=== PATIENT | female | born 1970 | race Caucasian/White ===

== ENCOUNTER 2024-04-13 07:13 | Emergency (ER) | payer MEDICAID, SELFPAY ==
[2024-04-13 07:39] VITALS: BP 137/71; PULSE 77; RESP 16; TEMP 35.2; O2SAT 98; BMI 24.8
[2024-04-13 08:33] LABS: Influenza A PCR NEGATIVE (Negative); Influenza B PCR NEGATIVE (Negative); Resp Syncy Virus RNA Qual PCR NEGATIVE (Negative); SARS COV2 PCR INHOUSE NEGATIVE (Negative)
[2024-04-13 12:18] VITALS: BP 156/78; PULSE 78; RESP 18; TEMP 36.9; O2SAT 95
--- NOTE | 2024-04-13 13:22 | ED.GENADULT ---
HPI - General Adult General Chief complaint: General Medical Stated complaint: nasal issue ear pain bloody nose Time Seen by Provider: 04/13/24 13:19 Source: patient and RN notes reviewed Mode of arrival: ambulatory Limitations: no limitations History of Present Illness ED Provider: Ayla Devries PA-C [facility] narrative: This is a 54-year-old female who presents emergency department for evaluation of sinus congestion, facial pain x1 week. Patient states that she has ongoing chronic sinusitis, and typically knows when she needs antibiotics. She states that she has been using xnyd-oxf-[id number] medications for her symptoms which has provided her without any relief. She denies any fevers or chills. She has a history of hypertension. She reports that she has had multiple episodes of epistaxis which occur after blowing her nose, she is not on anticoagulation. She states that these episodes are not prolonged. Denies any dizziness, lightheadedness, chest pain, shortness of breath, abdominal pain, nausea, vomiting or diarrhea. No other complaints or concerns at this time. MD complaint: Sinus pain Location: face Quality: aching Pain Consistency: constant Relieving factors: none Exacerbating factors: none Associated symptoms: denies other symptoms Treatments prior to arrival: none Related Data Previous Rx's ?Medication ?Instructions ?Recorded clindamycin HCl 300 mg capsule 300 mg PO TID 7 days #21 caps 04/13/24 Allergies Allergy/AdvReac Type Severity Reaction Status Date / Time SEASONAL ALLERGIES Allergy Unknown UNKNOWN Uncoded 04/13/24 07:40 Review of Systems Review of Systems: Yes all other systems are reviewed and are negative Constitutional: Constitutional: Reports as per [facility] Social History Social History Do you have a plan to hurt others: No Plan Physical Exam ED Vital Signs: Vital Signs - 24 hr 04/13/24 07:39 04/13/24 12:18 Temperature 95.4 F L 98.5 F Pulse Rate 77 78 Respiratory Rate 16 18 Blood Pressure 137/71 156/78 H Pulse Oximetry 98 95 Oxygen Delivery Method Room Air Room Air BMI result Body Mass Index 24.8 Const General: cooperative, comfortable and no acute distress Orientation/consciousness: patient oriented x3 Limitations: no limitations HENMT Other: Right nasal turbinate is mildly edematous and erythematous, no active epistaxis noted. No evidence of bleeding. Tenderness palpation along the maxillary and ethmoid as well as frontal sinuses. Head: Yes normal to inspection, Yes normocephalic and Yes atraumatic Ears: hearing grossly normal bilaterally and TM's normal bilaterally General nose exam: Normal external nose present Face and sinus: Yes normal facial exam Mouth: Normal oral and palatal mucosa present, oropharynx normal and moist mucous membranes Throat: Yes posterior oropharynx normal Eyes General: appearance normal, both eyes and all related structures Eyelids: Yes eyelids normal Conjunctivae: conjunctivae normal Sclerae: sclerae normal Pupils: Equal, round and reactive pupils present EOM: EOMs intact bilaterally Neck Neck: Yes normal visual inspection, Yes full ROM and Yes no lymphadenopathy Lymphatic: no lymphadenopathy noted Chest Chest palpation & inspection: normal inspection of the chest Resp Effort & Inspection: normal respiratory effort and able to speak in complete sentences Auscultation: clear to auscultation bilaterally, no crackles, no rales, no rhonchi and no wheezes Cardio Rate: regular rate Rhythm: regular rhythm Heart sounds: S1 normal heart sound present and S2 normal heart sound present GI Inspection: Yes normal to inspection Skin General skin exam: no rashes or lesions noted Trauma: no lacerations or abrasions Wounds: no wounds Neuro General: patient oriented x3 and moves all extremities Cranial nerves: Yes Equal, round and reactive pupils present Extrem General: Yes normal to inspection Right upper extremity: normal to inspection Left upper extremity: normal to inspection Right lower extremity: normal to inspection Left lower extremity: normal to inspection Medical Decision Making Medical Decision Making MDM Narrative: This is a 54-year-old female, with a history of chronic sinusitis, who presents emergency department with complaints of sinus pain, pressure for the last week. She denies any fevers or chills. She states that she has a history of chronic sinus infections, states that she takes dmah-ing-ecbxukc allergy medications however states that the over the counter medications are no longer working. She states that at times she was get prescribed antibiotics to alleviate her symptoms. She does report she has an allergy to penicillin. Given this allergy, we will treat with clindamycin. Given strict return precautions. Viral swabs were obtained, negative for COVID, flu, RSV. Patient understands and agrees with plan. She is overall well-appearing, answered all questions, patient stable for discharge. Differential Diagnosis Differential Diagnoses: The differential diagnosis associated with the presentation includes Sinusitis, COVID, flu, RSV, epistaxis Admission/Observation Consideration of admission/observation: Escalation of care including admission/observation considered Lab Data MDM Lab Attestation statement: I reviewed the patient's lab results. Labs: Lab Results 04/13/24 Range/Units 07:49 Influenza Type A (PCR) NEGATIVE (Negative) Influenza Type B (PCR) NEGATIVE (Negative) RSV RNA Qual (PCR) NEGATIVE (Negative) SARS-CoV-2 RNA (RT-PCR) NEGATIVE (Negative) Radiology Impression Discussion of test interpretation with radiology: I have reviewed the radiologist's reading. External Record Review External record reviewed: Inpatient record, Office record, Outpatient record, Prior outpatient labs, Prior outpatient radiology, Primary care record and Outside ED record Discharge Plan Discharge Clinical Impression: Sinusitis Patient Disposition: Home, Self-Care Instructions: Sinusitis (ED) Additional Instructions: You were seen in the emergency department with concerns for sinus congestion. You have evidence for ascites infection, please take prescribed antibiotic as directed, finish the entire course even if your symptoms improve. Drink plenty of fluids get plenty of rest. You tested negative for COVID, flu, and RSV. If any new or worsening symptoms occur including but not limited to high fevers, severe headache, dizziness, please seek emergent care. Prescriptions: New clindamycin HCl 300 mg capsule 300 mg PO TID 7 Days Qty: 21 0RF Stand Alone Forms: Work/School Release Print Language: Danish
[2024-04-13 13:41] VITALS: BP 156/78; PULSE 78; RESP 18; TEMP 36.9; O2SAT 95
--- OUTSIDE RECORDS SUMMARY | 2024-04-13 14:36 | XMS_ITS | Clinical Summary ---
Author Organization [address] Address [address] [place] [id number] Phone Care Team Providers Care Historical Archeologist Name Role Phone Ana Burkett MD Primary Care Provider [phone] Allergies Active Allergy Reactions Criticality Noted Date Comments Amoxicillin Hives High 12/08/2013 Doxycycline Nausea And Vomiting 05/31/2017 Other 07/02/2016 Seasonal Medications mometasone (Asmanex Twisthaler) 220 mcg/ actuation (120) aerosol powdr breath activated inhaler Inhale 1 Puff into the lungs 2 times daily. 08/13/2023 Active hydroCHLOROthia zide (HYDRODIURIL) 50 mg tablet Take 1 tablet (50 mg total) by mouth 1 (one) time each day. 08/13/2023 Active valsartan (DIOVAN) 40 mg tablet Take 1 tablet (40 mg total) by mouth 1 (one) time each day. 08/13/2023 Active atorvastatin (LIPITOR) 20 mg tablet Take 1 tablet (20 mg total) by mouth 1 (one) time each day. 08/13/2023 Active albuterol HFA (PROAIR HFA ; PROVENTIL HFA ; VENTOLIN HFA) 90 mcg/actuation inhaler Inhale 2 Puffs into the lungs every 4 hours as needed for Cough or Wheezing. 08/13/2023 Active azithromycin (ZITHROMAX) 250 mg tablet Take 2 tabs day 1, take 1 tab daily for 4 days 08/13/2023 Active azelastine (ASTELIN) 137 mcg (0.1 %) nasal spray 1 [place] by Each Nare route at bedtime. 03/24/2023 Active loratadine (CLARITIN) 10 mg tablet Take 1 tablet (10 mg total) by mouth 1 (one) time each day. 08/13/2023 Active oxyCODONE-aceta minophen (PERCOCET) 5-325 mg per tablet Take 1 Tablet by mouth every 6 hours as needed for Pain. Written to cover in Dr Finch's absence 12/10/2022 Active Active Problems Problem Noted Date Diagnosed Date Mixed hyperlipidemia 08/13/2023 Seasonal allergies 06/11/2021 Overview (12/21/2023): Last Assessment & Plan: Continue following in the allergy clinic. I advised her to start using Claritin but if it does not work she may need to get back to the allergy immunotherapy. Moderate persistent asthma 08/21/2019 Overview (12/21/2023): Last Assessment & Plan: Patient has been diagnosed previously with moderate asthma. She has been receiving monotherapy with high-dose inhaled steroid 220 mcg 1 puff twice a day of Flovent and feels her that her asthma is under control. She comes to establish care with us and I will prescribe the following: Pulmonary function testing her next appointment. Continue using current therapy with Flovent twice a day and albuterol as needed. Patient technique review. Patient knows how to use the inhaler Advised to try to avoid triggers like cold weather and dose Fibromyalgia 03/01/2017 Migraine 07/01/2016 Overview (12/21/2023): Negative noncontrast brain CT [facility] ER 06/30/16 Left sided sciatica 04/01/2015 Eczema 08/03/2014 Ovarian cyst 05/21/2014 Overview (12/21/2023): S/p partial hysterectomy - Dr. Cheng at [facility] Allergic rhinitis 01/05/2014 Overview (12/21/2023): Saw ENT 12/25/2013 - ENT exam unremarkable, sinus xrays nml - may need allergy evaluation Hypertension 12/08/2013 Joint pain 12/08/2013 PTSD (post-traumatic stress disorder) 12/08/2013 Overview (12/21/2023): Currently [facility] but transitioning to [facility] Encounters Date Type Department Care Team Description 01/28/2024 7:18 AM EST - 01/28/2024 8:39 AM EST Emergency [facility] Emergency [address] [place] [address] Viral syndrome (Primary Dx) Discharge Disposition: Home or Self Care from Last 3 Months Immunizations Name Administration Dates Next Due Hep B, Unspecified 08/31/2011 Hepatitis A Adult (Havrix; Vaqta) 19yo and older 06/24/2012 Hepatitis B (Fjokjqi-Q-Lcymt , Recombivax HB-Adult) 19yo and older 08/27/2001 Influenza Quadravalent, 0.5ml (Fluad) 65yo and o lder 12/01/2022 Influenza trivalent, 0.5mL, preservative free (Fluarix; FluLaval; Fluzone) ages 6mo and older (Afluria) 3 years and older 12/08/2013 PPD Test 11/11/2015,12/13/2013 [employer] SARS-CoV-2 COVID-19, mRNA, LNP-S, preservative free 06/17/2020 Pneumococcal polysaccharide 23 valent (Pneumovax 23) 2yo and older 05/21/2014 Tdap Tetanus diptheria acell ular pertussis (Boostrix; Adacel) 7yo and older 05/21/2014 Surgical History Surgery Date Site/Laterality Comments PARTIAL HYSTERECTOMY 1984 PROCEDURE: NE SUPRACERVICAL ABDL HYSTER W/WO RMVL TUBE OVARY; COMMENT: still has one ovary Medical History Medical History Date Comments Mild intermittent asthma 12/08/2013 DX:Mild intermittent asthma Hypertension 12/08/2013 DX:Hypertension Depression with anxiety 12/08/2013 DX:Depre ssion with anxiety; COMMENT: [facility] but then [facility] Joint pain 12/08/2013 DX:Joint pain History of bleeding ulcers age 19 DX:Dc story of bleeding ulcers; COMMENT: no location given History of pericarditis DX:Histo ry of pericarditis; COMMENT: 02/2012 - followed with cardiology Family history of colon cancer 06/17/2015 D X:Family history of colon cancer; COMMENT: 06/17/15 GI tried to book her screening colonoscopy: Pt. Refuses to schedule colonoscopy with us. She states that she has no way to watch the video or web link. I did inform her that she could come in and watch if here. She was very upset and stated she will be transferring out of [place]. Hyperlipidemia DX:Hyperlipidemi a Family History Medical History Relation Name Comments Colon cancer Father Blindness Neg Hx Glaucoma, macul ar degeneration, strabismus, breast cancer Relation Name Status Comments Daughter Alive born 1990 [place] , obese Father Alive had colon CA ag e 65 Mother Alive pt was 21 when mother of brain aneurysm Sister 1 Alive elder by 1 yr, Carmen in [place] Sister 2 Alive younger by 1 yr , Mary Grace, in Sister 3 Alive younger by 3-4 yrs, Radha, in [place] Son Alive born Matthew Social History Tobacco Use Types Packs/Day Years Used Date Smoking Tobacco: Former Cigarettes Q uit: 02/22/1998 Smokeless Tobacco: Never Alcohol Use Standard Drinks/Week Comments Yes 0 (1 standard drink = 0.6 oz pur e alcohol) Housing Instability Answer Date Recorde d Are you worried that in the next 2 months you may not have stable housing? No 01/05/2024 Food Access & Nutrition Answer Date Rec orded Do you have access to a vari ety of food including fruits and vegetables? No 01/05/2024 Access to Healthcare Answer Date Record ed Within the last 3 months, ho w many times did you visit the emergency department for your medical care? 0 01/05/2024 Health Literacy Answer Date Recorded How often do you need to hav e someone help you when you read instructions, pamphlets, or other written material from your doctor or pharmacy? Sometimes 01/05/2024 Caregiver: How often do you need to have someone help you when you read instructions, pamphlets, or other written material from your doctor or pharmacy? Not on file 01/05/2024 Financial Risk Answer Date Recorded How hard is it for you to pa y for the very basics like food, housing, medical care, and air conditioning / heating? Somewhat hard 01/05/2024 Transportation Answer Date Recorded Has the lack of transportati on kept you from meetings, work, or from getting things needed for daily living? Yes Has the lack of transportati on kept you from medical appointments or from getting medications? Yes 01/05/2024 Social Isolation Answer Date Recorded How often do you feel lonely or isolated from those around you? Sometimes 01/05/2024 Food Risk Answer Date Recorded Within the past 12 months we worried whether our food would run out before we got money to buy more. Sometimes true 024 Within the past 12 months th e food we bought just didn't last and we didn't have money to get more. Never true 01/05/2024 Dependent Care Answer Date Recorded Do you need help finding or paying for care for your loved ones. For example, director child or elderly care for an older adult? No 01/05/2024 Education Answer Date Recorded Do you think completing more education or training, like finishing a GED, going to college, or learning a trade, would be helpful for you? No 01/05/2024 Employment and Income Answer Date Recor ded During the last four weeks, have you been actively looking for work? No 01/05/2024 Living Situation Answer Date Recorded What is your living situation? 1 03/06/2023 Comments Unknown Sex and Gender Information Value Date Recorded Sex Assigned at Female 01/28/2024 7:43 AM EST Legal Sex Female 2:15 PM EST Gender Identity Female 01/28/2024 7:43 AM EST Sexual Orientation Straight 01/28/2024 7: 43 AM EST Obstetrics History Last Filed Vital Signs Vital Sign Reading Time Taken Comments Blood Pressure 125/84 01/28/2024 6:30 AM EST Pulse 72 01/28/2024 6:30 AM EST Temperature 36.5 ??C (97.7 ??F) 01/28/2024 6:30 AM ES T Respiratory Rate 18 01/28/2024 6:30 AM EST Oxygen Saturation 100% 01/28/2024 6:30 AM EST Inhaled Oxygen Concentration - - Weight 62.6 kg (138 lb) 01/28/2024 2:19 AM EST Height 160 cm (5' 3 ) 01/28/2024 2:19 AM EST Body Mass Index 24.45 01/28/2024 2:19 AM EST Plan of Treatment Health Maintenance Due Date Last Done Comments Cervical Cancer Screening: P ap Smear 1990 Hepatitis B Vaccines (3 of 3 - 19+ 3-dose series) 10/26/2011 08/31/2011, 08/27/2001 Pneumococcal Vaccine: 50+ Years (2 of 2 - PCV) 05/22/2015 05/21/2014 Pneumococcal Vaccine: Pediatrics (0 to 5 Years) and At-Risk Patients (6 to 64 Years) (2 of 2 - PCV) 05/22/2015 05/21/2014 Zoster Vaccines (1 of 2) 2019 HIV Screening 01/31/2022 Hepatitis C Screening 01/31/2022 COVID-19 Vaccine (4 - 2023-2 5 season) 2023 03/14/2022, 07/08/2020, 06/17/2020 Influenza Vaccine (#1) 2023 , 12/08/2013 Breast Cancer Screening 05/07/2024 05/07/2022 DTaP,Tdap,and Td Vaccines (2 - Td or Tdap) 05/21/2024 05/21/2014 Hypertension/CHF/CAD Annual BMP Blood Test 08/12/2024 08/13/2023, 08/13/2023, 11/08/2013 Depression Screening 01/04/2025 01/05/2024 Social Influencers of Health Screening 01/04/2025 01/05/2024 Colorectal Cancer Screening: Colonoscopy 06/13/2028 06/13/2018 Cholesterol Screening (Lipid Panel) 08/12/2028 08/13/2023, 08/13/2023, 11/08/2013 Hepatitis A Vaccines Aged Out 06/24/2012 No long er eligible based on patient's age to complete this topic HIB Vaccines Aged Out No longer eligi ble based on patient's age to complete this topic HPV Vaccines Aged Out No longer eligi ble based on patient's age to complete this topic IPV Vaccines Aged Out No longer eligi ble based on patient's age to complete this topic MMR Vaccines Aged Out No longer eligi ble based on patient's age to complete this topic Meningococcal ACWY Vaccine Aged Out N o longer eligible based on patient's age to complete this topic Meningococcal B Vacine Aged Out No lo nger eligible based on patient's age to complete this topic RSV Immunization Patients Under 20 months Aged Out No longer eligible b ased on patient's age to complete this topic Varicella Vaccines Aged Out No longer eligible based on patient's age to complete this topic Procedures Procedure Name Priority Date/Time Associated Diagnosis Comments ANNUAL BMP BLOOD TEST Routine 08/13/2023 LIPID PANEL Routine 08/13/2023 [facility] SCREENING DIGITAL Routine 05/07/2022 12:12 PM EDT Encounter for screening mammogram for malignant neoplasm of breast COLONOSCOPY Routine 06/13/2018 from Last 3 Months or Most Recently Relevant to Health Maintenance Results * Annual BMP Blood Test (08/13/2023) Annual BMP Blood Test Abstracted Historical Provider HEALTH MAINTENANCE Final Result * (ABNORMAL) Lipid panel (08/13/2023) LDL/HDL Ratio 5(A) 0 - 4 Triglycerides 356(A) 0 - 150 mg/dL Cholesterol 218(A) 0 - 200 mg/dL HDL 44 >=40 mg/dL LDL Cholesterol 103(A) 0 - 100 mg/dL Blood Venous blood specimen / Unknown Historical Provider LAB BLOOD ORDERABLES Taryn l Result * [facility] SCREENING DIGITAL (05/07/2022 12:12 PM EDT) Anatomical Region Laterality Modality Mammography 05/07/2022 8:42 AM EDT Narrative 05/07/2022 12:12 PM EDT [facility] Diagnostic Imaging Department [address] [place] [id number] Patient: ??JOSE ALBERTO,TENZIN ?/Age/Sex: 1970 - 52 - F Unit#: ??[id number] ? Location/Status: ??SPDIMAM/REG CLI ? Mnemonic/Ordering Site: ??DIGSC/SPMAM Ordering Physician: ??ANA BURKETT MD [facility] Screening Digital - 05/07/22 - 899 EXAM: [facility] Screening Digital EXAM DATE AND TIME: 05/07/2022 9:00 AM HISTORY: ??Screening. COMPARISON: ??07/06/16, 09/16/15, 09/07/14, 07/10/09 TECHNIQUE: CC and MLO views of both breasts were obtained using full field digital mammography. Bilateral digital breast tomosynthesis was performed in the MLO projection. Computer aided detection with [employer] 7.2-H and [employer] 3D 3.1 was employed. TISSUE DENSITY: c. The breasts are heterogeneously dense, which may obscure small masses. FINDINGS: A 6 mm round asymmetry is seen in the central left breast on the MLO views, best seen on the tomosynthesis views which shows the abnormalities to lie in the lateral breast. There is an equivocal corresponding asymmetry in the CC projection. MLO spot compression tomosynthesis views and full CC tomosynthesis views are recommended for further assessment. No grouped microcalcifications or areas of architectural distortion are seen. The skin and vascularity are unremarkable. IMPRESSION: 1. Left breast asymmetry, for which additional views are recommended. The patient will be called back. 2. Stable mammographic appearance of the right breast. No evidence of malignancy is seen. BI-RADS: ??Category 0: Incomplete - Need Additional Imaging Evaluation RECOMMENDATION(S): 1: Special mammographic view(s) needed LEFT [id number], [id number], [id number] Dictating Physician: ??CLAUDIA REAVES MD Electronically Signed by: ??CLAUDIA REAVES MD Dic Date/Time: ??05/07/22 1210 Sign date/Time: ??05/07/22 1212 Procedure Note Claudia Reaves MD - 03/26/2023 [facility] Diagnostic Imaging Department [address] [place] [id number] Patient: JOSE ALBERTOTENZIN./Age/Sex: 1970 - 52 - F Unit#: [id number] Location/Status: [facility] CLI Mnemonic/Ordering Site: [facility] Ordering Physician: ANA BURKETT MD [facility] Screening Digital - 05/07/22 - 0900 EXAM: [facility] Screening Digital EXAM DATE AND TIME: 05/07/2022 9:00 AM HISTORY: Screening. COMPARISON: 07/06/16, 09/16/15, 09/07/14, 07/10/09 TECHNIQUE: CC and MLO views of both breasts were obtained using fullfield digital mammography. Bilateral digital breast tomosynthesis was performedin the MLO projection. Computer aided detection with [employer] 7.2-H [employer] 3D 3.1 was employed. TISSUE DENSITY: c. The breasts are heterogeneously dense, which mayobscure small masses. FINDINGS: A 6 mm round asymmetry is seen in the central left breast on the MLOviews, best seen on the tomosynthesis views which shows the abnormalities to liein the lateral breast. There is an equivocal corresponding asymmetry in the CC projection. MLO spot compression tomosynthesis views and full CCtomosynthesis views are recommended for further assessment. No grouped microcalcifications or areas of architectural distortion areseen. The skin and vascularity are unremarkable. IMPRESSION: 1. Left breast asymmetry, for which additional views are recommended.The patient will be called back. 2. Stable mammographic appearance of the right breast. No evidence of malignancy is seen. BI-RADS: Category 0: Incomplete - Need Additional Imaging Evaluation RECOMMENDATION(S): 1: Special mammographic view(s) needed LEFT [id number], [id number], 7025F Dictating Physician: CLAUDIA REAVES MD Electronically Signed by: CLAUDIA REAVES MD Dic Date/Time: 05/07/22 1210 Sign date/Time: 05/07/22 1212 Ana Burkett MD IMG BI PROCEDURES Final Result * Colonoscopy (06/13/2018) Colonoscopy Normal, Abstracted Anatomical Region Laterality Modality Other Historical Provider HEALTH MAINTENANCE Final Result from Last 3 Months or Most Recently Relevant to Health Maintenance Insurance [place] Care Teams Historical Archeologist Relationship Specialty Start Date End Date Ana Burkett MD PCP - General Internal Medicine 01/14/24
--- OUTSIDE RECORDS SUMMARY | 2024-04-13 14:36 | XMS_ITS | Clinical Summary ---
Author Organization [employer] Address [address] [facility] 7[address] [place] [address] Care Team Providers Care Manufacturing Technology Professor Name Role Phone Unavailable Primary Care Provider Unavailabl e Encounters Date Type Department Care Team Description 04/06/2024 Telephone [facility] MEDICINE [address] [place] [address] Clint Quesada MD New patient appt. 03/20/2024 Patient Outreach [facility] CHC MED & PEDS [address] [place] [address] Dain Wright MD Pre-visit Planning (ILOH unable to reach [facility]) 02/04/2024 Telephone [facility] MEDICINE [address] [place] [address] Clint Quesada MD New patient appt. from Last 3 Months Social History Tobacco Use Types Packs/Day Years Used Date Smoking Tobacco: Never Assessed Comments Unknown Sex and Gender Information Value Date Recorded Sex Assigned at Female 03/23/2024 8:54 AM EST Legal Sex Female 3:37 PM EST Gender Identity Female 03/23/2024 8:54 AM EST Sexual Orientation Don't know 03/23/2024 8: 54 AM EST Plan of Treatment Health Maintenance Due Date Last Done Comments CT Colonography 1969 Colonoscopy 1969 Colorectal Cancer Screening 1969 Depression Screening 1969 FIT DNA/Cologuard 1969 FIT 1969 FOBT 1969 HIV Screening 1969 Lipid Panel 1969 SDOH Screening 1969 Sigmoidoscopy 1969 Alcohol/Substance Use Screening 1981 Tobacco Screening 1981 Hepatitis C Screening 1987 Pap Smear 1990 Cervical Cancer Screening 1999 HPV/Cotest 1999 Mammogram 2009 Hepatitis B Vaccines (3 of 3 - 19+ 3-dose series) 10/26/2011 08/31/2011, 08/27/2001 Pneumococcal Vaccine: 50+ Years (2 of 2 - PCV) 05/22/2015 05/21/2014 Zoster Vaccines (1 of 2) 2019 COVID-19 Vaccine (3 - 2023-2 5 season) 2023 07/08/2020, 06/17/2020 Influenza Vaccine (#1) 2023 , 12/08/2013 DTaP/Tdap/Td Vaccines (2 - T d or Tdap) 05/21/2024 05/21/2014 RSV Patients and Patients Aged 60 years or older (1 - 1-dose 75+ series) 01/03/2044 Hepatitis A Vaccines Aged Out 06/24/2012 No [...] patient's age to complete this topic Meningococcal Vaccine Aged Out No veronique diana eligible based on patient's age to complete this topic RSV under 20 months Aged Out No longe r eligible based on patient's age to complete this topic Rotavirus Vaccines Aged Out No longer eligible based on patient's age to complete this topic Insurance HSN PARTIAL
--- OUTSIDE RECORDS SUMMARY | 2024-04-13 14:36 | XMS_ITS | Encounter Summary ---
Author Organization [employer] Address [address] [facility] 7 [place] [address] Care Team Providers Care Shot Core Drill Operator Helper Name Role Phone Unavailable Primary Care Provider Unavailabl e Reason for Visit * Reason Onset Date Comments New patient appt. 04/06/2024 Encounter Details Date Type Department Care Team (Late st Contact Info) Description 04/06/2024 Telephone [facility] MEDICINE [address] [place], [place] [phone] Clint Quesada MD [address] [place], [place] [phone] New patient appt. Social History Tobacco Use Types Packs/Day Years Used Date Smoking Tobacco: Never Assessed Comments Unknown Sex and Gender Information Value Date Recorded Sex Assigned at Female 03/23/2024 8:54 AM EST Legal Sex Female 3:37 PM EST Gender Identity Female 03/23/2024 8:54 AM EST Sexual Orientation Don't know 03/23/2024 8: 54 AM EST documented as of this encounter Miscellaneous Notes * Telephone Encounter - Nithya Sainz - 04/06/2024 3:53 PM EST Outgoing call to pt to book TELECASTING ENGINEER appt. Unable to verify pt ins as it doesn't go into effect until 04/22/24. Commercial Real Estate Paralegal advised to return call once switch has been verified and request to speak to New Patient TY Tyson. Pt agreed. documented in this encounter Plan of Treatment Not on file documented as of this encounter Visit Diagnoses Not on filedocumented in this encounter
--- OUTSIDE RECORDS SUMMARY | 2024-04-13 14:36 | XMS_ITS | Clinical Summary ---
Author Organization [facility] Address [address] [facility] [place] [address] Care Team Providers Care Heater Furnace Name Role Phone Unavailable Primary Care Provider Unavailabl e Source Comments PLEASE NOTE, if this patient is a minor, it may be UNLAWFUL to discuss sensitive information that is contained in these records (such as FAMILY PLANNING, MENTAL HEALTH or SUBSTANCE ABUSE) with the minor patient's parent or other person without the patient's specific authorization.[facility] Allergies Active Allergy Reactions Criticality Noted Date Comments Amoxicillin Hives High 12/08/2013 Medications fluticasone (FLONASE) 50 mcg/actuation nasal sprayIndication s:Serous otitis media,Sinusitis Place 1 Simla into the nostril(s) once daily. 16 g 2 4 Active clonazePAM (KLONOPIN) 0.5 mg tablet Take 0.5 mg by mouth 3 (three) times daily. For anxiety. Active ARIPiprazole (ABILIFY) 2 mg tabletIndicatio ns:major depressive disorder treatment adjunct,anxiety Take 2 mg by mouth once daily. Indications: Depression Treatment Adjunct, anxiety Active zolpidem (AMBIEN) 10 mg tabletIndicatio ns:sleep-onset insomnia Take 10 mg by mouth nightly at bedtime as needed. Take immediately before bedtime. Indications: Sleep-Onset Insomnia Active citalopram (CELEXA) 40 mg tabletIndicatio ns:depression Take 40 mg by mouth every morning. Indications: depression Active albuterol sulfate hfa (PROAIR HFA) 90 mcg/actuation inhalerIndicati ons:Asthma in adult Inhale 2 Puffs into the lungs every 4 (four) hours as needed (1-2 puffs every 4-6 hours prn). 1 Inhaler 3 4 Active NIFEdipine (ADALAT CC) 60 mg 24 hr tabletIndicatio ns:HTN (hypertension) Take 1 tablet by mouth once daily. Take on an empty stomach. Swallow whole. Do not break, crush or chew. 30 tablet 3 4 Active hydrochlorothia zide (HYDRODIURIL) 25 mg tabletIndicatio ns:HTN (hypertension) Take 1 tablet by mouth once daily. 30 tablet 3 4 Active Active Problems Problem Noted Date Diagnosed Date Bleeding ulcer 07/13/2013 S/P partial hysterectomy 04/28/2013 Overview (04/28/2013): Done for ovarian cyst on R Anxiety Depression HTN (hypertension) Social History Tobacco Use Types Packs/Day Years Used Date Smoking Tobacco: Never Passive Smoke Exposure: Never Alcohol Use Standard Drinks/Week Comments Yes 0 (1 standard drink = 0.6 oz pur e alcohol) Social Connections Answer Date Recorded Connectedness 0 11/16/2023 Financial Resource Strain Answer Date R ecorded Financial Resource Strain 0 2022 Stress Answer Date Recorded Stress 0 04/09/2022 Physical Activity Answer Date Recorded Physical Activity 0 04/09/2022 Food Insecurity Answer Date Recorded Food 0 11/18/2023 Transportation Needs Answer Date Record ed Transportation 0 04/09/2022 Housing Stability Answer Date Recorded Housing 0 04/09/2022 Safety and Environment Answer Date Chiki rded Safety 0 04/09/2022 Utilities Answer Date Recorded Utilities 0 04/09/2022 Employment Answer Date Recorded Stress 0 11/16/2023 Comments No Sex and Gender Information Value Date Recorded Sex Assigned at Female 02/25/2023 10:23 AM PST Legal Sex Female 11:36 AM PDT Gender Identity Female 02/25/2023 10:23 AM PST Sexual Orientation Don't know 02/25/2023 10 :23 AM PST Last Filed Vital Signs Vital Sign Reading Time Taken Comments Blood Pressure 155/88 02/25/2023 1:08 PM EST Pulse 78 02/25/2023 1:08 PM EST Temperature 36.7 ??C (98 ??F) 02/25/2023 1:08 PM EST Respiratory Rate 14 02/25/2023 1:08 PM EST Oxygen Saturation - - Inhaled Oxygen Concentration - - Weight 62.6 kg (138 lb) 02/25/2023 1:08 PM EST Height 160 cm (5' 3 ) 02/25/2023 1:08 PM EST Body Mass Index 24.45 02/25/2023 1:08 PM EST Plan of Treatment Health Maintenance Due Date Last Done Comments Dental Prophy 1969 HPV Screening 1969 Hepatitis C Screening 1969 Pap + HPV 1969 Tobacco Screening 1969 HIV Screening 01/03/1984 Cervical Cancer Screening 1990 Pap Smear 1990 Breast Cancer Screening (Mammogram) 2009 Imm-Hepatitis B (3 of 3 - 19 + 3-dose series) 10/26/2011 08/31/2011, 08/27/2001 CT Colonography 2014 Colonoscopy 2014 Colorectal Cancer Screening 2014 FIT/gFOBT 2014 Fecal DNA 2014 Flexible Sigmoidoscopy 2014 Annual Preventive Care Visit 10/27/2014 10/27/2013 Imm-Zoster, Recombinant (1 of 2) 2019 Diabetes Screening 01/13/2020 01/12/2019, 11/08/2013 [id number] ( season) 2023 12/01/2022, 03/14/2022, 07/08/2020, Additional history exists Imm-Influenza (#1) 2023 12/01/2022, 0 03/17/2022, 12/08/2013 Alcohol and Drug Screen 02/23/2024 Depression Annual Screen 02/23/2024 Hypertension Screening (#1) 02/25/2024 Imm-DTaP/Tdap/Td (2 - Td or Tdap) 05/21/2024 015 Lipid Screening 08/12/2024 08/13/2023, 03/25, 11/08/2013 Cervical Ablation/Cold-Knife Conization Discontinued Cervical Cryotherapy Discontinued Colposcopy Discontinued Endometrial Biopsy Discontinued Excision/Leep Discontinued HPV Genotyping Discontinued Vaginal Pap Discontinued Vulvoscopy Discontinued Procedures Procedure Name Priority Date/Time Associated Diagnosis Comments COMPREHENSIVE METABOLIC PANEL Routine 11/08/2013 11:55 AM EDT HTN (hypertension) Physical exam, annual Depression Anxiety S/P partial hysterectomy Bleeding ulcer LIPID PANEL Routine 11/08/2013 11:55 AM EDT HTN (hypertension) Physical exam, annual Depression Anxiety S/P partial hysterectomy Bleeding ulcer from Last 3 Months or Most Recently Relevant to Health Maintenance Results * (ABNORMAL) LIPID PANEL (11/08/2013 11:55 AM EDT) CHOLESTEROL 182 0 - 200 mg/dL [facility] TRIGLYCERIDES 123 0 - 150 mg/dL [facility] HDL CHOLESTEROL 42 >40 mg/dL [facility] LDL CALCULATED 116(H) 0 - 100 mg/dL [facility] TC-HDLC RATIO 4.3 0 - 4.4 mg/dL [facility] Blood specimen (specimen) Blood / Unknown 11/08/2013 11:55 AM EDT 11/08/2013 5:28 PM EDT Narrative [facility] - 11/08/2013 6:56 PM EDT [facility] [address] [place] [address] [place] [id number] ORD# [id number] Lexy Lance PA-C LAB - BLOOD DRAW [place] [address], * COMPRE METAB PANEL (11/08/2013 11:55 AM EDT) GLUCOSE 86 70 - 100 mg/dL [facility] Comment:Reference range appl icable to fasting specimens only BUN 11 5 - 25 mg/dL [facility] CREAT 0.65 0.5 - 1.1 mg/dL [facility] GLOMERULAR FILTRATION RATE > 60 [facility] Comment: If patient is -Mauritian, multiply result by 1.21 Chronic Kidney Disease: < 60 ml/min/1.73 square meters Kidney Failure: < 15 ml/min/1.73 square meters SODIUM 138 133 - 145 mEq/L [facility] POTASSIUM 4.2 3.5 - 5.5 mEq/L [facility] CHLORIDE 105 96 - 110 mEq/L [facility] CO2 26 21 - 32 mEq/L [facility] ANION GAP 7 3 - 11 [facility] CALCIUM 8.9 8.5 - 10.5 mg/dL [facility] TOTAL PROTEIN 6.6 6.0 - 8.0 G/dL [facility] ALBUMIN 4.1 3.2 - 5.0 G/dL [facility] BILI, TOTAL 0.3 0.0 - 1.4 mg/dL [facility] SGOT 21 10 - 42 U/L [facility] SGPT 13 10 - 60 U/L [facility] ALK PHOS 56 42 - 121 U/L [facility] Blood specimen (specimen) Blood / Unknown 11/08/2013 11:55 AM EDT 11/08/2013 5:28 PM EDT [facility] - 11/08/2013 6:56 PM EDT [facility] [address] [place] [address] [place] [id number] ORD# [id number] Lexy Lance PA-C LAB - BLOOD DRAW Final Re sult [facility] [address] [place] [address], from Last 3 Months or Most Recently Relevant to Health Maintenance Insurance [place] [id number] Member Subscriber Plan / Payer (Ef fective 2023-Present) Name:EugeneIsa Relation to Subscriber:Self Name:Eugene, Isa Payer ID:[id number] Type:Indemnity Address: [facility] [address] [place] [address]
--- OUTSIDE RECORDS SUMMARY | 2024-04-13 14:36 | XMS_ITS | Encounter Summary ---
Author Organization [employer] Address [address] [place] [address] 7 [place] [address] Care Team Providers Care Production Control Coordinator Name Role Phone Unavailable Primary Care Provider Unavailabl e Reason for Visit * Reason Comments Pre-visit Planning SDOH unable to reach LVM Encounter Details Date Type Department Care Team ([facility] st Contact Info) Description 03/20/2024 Patient Outreach [facility] CHC MED & PEDS [address] [place], [place] [phone] Dain Wright MD [address] [place] [address] Pre-visit Planning (SDOH unable to reach LVM) Social History Tobacco Use Types Packs/Day Years Used Date Smoking Tobacco: Never Assessed Comments Unknown Sex and Gender Information Value Date Recorded Sex Assigned at Female 03/23/2024 8:54 AM EST Legal Sex Female 3:37 PM EST Gender Identity Female 03/23/2024 8:54 AM EST Sexual Orientation Don't know 03/23/2024 8: 54 AM EST documented as of this encounter Progress Notes * Monika Mosher - 03/20/2024 12:13 PM EST JUSTINE Camp placed outbound call to patient to complete pre-visit planning. No answer at this time. Patient name and were not confirmed. CC left voicemail requesting return call. Direct contactinformation provided. documented in this encounter Plan of Treatment Not on file documented as of this encounter Visit Diagnoses Not on filedocumented in this encounter
== END 2024-04-13 13:42 | disposition home or self-care (01) ==
PROVIDERS: Emergency Provider Emergency Medicine
DX: J32.9 Chronic sinusitis, unspecified (principal); H92.03 Otalgia, bilateral; R51.9 Headache, unspecified; Z03.818 Encounter for observation for suspected exposure to other biological agents ruled out
CPT/HCPCS: 0241U; 99282; 99283